=== PATIENT | female | born 1945 | race Caucasian/White ===

== ENCOUNTER 2018-11-03 20:39 | Inpatient (IN) | payer MEDICARE, OTHER | END 2018-11-06 16:30 | disposition home or self-care (01) | LOC: ER 20:39 → ED HOLD 11-04 03:39 → ORTHO 4S 11-04 05:50 | DX: J44.0 Chronic obstructive pulmonary disease with (acute) lower respiratory infection (principal); I25.10 Atherosclerotic heart disease of native coronary artery without angina pectoris; I50.9 Heart failure, unspecified ==

== ENCOUNTER 2019-06-23 18:15 | Emergency (ER) | payer MEDICARE, OTHER ==
[~2019-06-23] VITALS: Ht 160 cm; Wt 61.8 kg
[~2019-06-23 18:15] MED LIST: ALBU2.5V7 NEB; AMLO-359 PO; DIPH-423 PO; DOXY-224 PO; FERR325T35 PO; LACT1CAP26 PO; LEVO200T PO; LOPE-144 PO; PRED10TA PO; [UNRECOGNIZED DRUG - CODE] PO
[2019-06-23] MEDS ORDERED: ondansetron 4mg rapidly disintigrating tab PO ONE (19:25)
[2019-06-23] MEDS ORDERED: pantoprazole 40 MG vial IV ONE (19:35)
[2019-06-23 19:46] LABS: CLARITY,URINE CLEAR (Clear); COLOR,URINE YELLOW (Yellow); GLUCOSE, URINE NEGATIVE (Neg); KETONES,URINE NEGATIVE (Neg); LEUKOCYTE ESTERASE ,URINE NEGATIVE (Neg); NITRITES, URINE NEGATIVE (Neg); OCCULT BLOOD,URINE NEGATIVE (Neg); PROTEIN,URINE NEGATIVE (Neg); UROBILINOGEN,URINE 0.2 E.U/dL (0.2-1.0)
[2019-06-23 19:48] LABS: UA COLLECTION TYPE CLN CATCH MIDSTREAM
--- NOTE | 2019-06-23 20:07 | NUR ---
PT HOB ELEVATED 90 DEGRESS O2 SATS 91-92 % ROOM AIR . PT STATES SHE GOES TO BED ABOUT [id number] AND NEEDS HER O2 SHE USES 2 LITERS AT HOME AT BEDTIME. PLACE PT ON 2 L NC TO MAINTAIN SATS > 95 % PT RESTING COMFORTABLY WITH HEAD OF BED NOW DOWN 30 DEGREES UNLABORED.
[2019-06-23 20:08] LABS: BASOPHILS % (AUTO) 1.1 % (0-1); EOSINOPHILS # (AUTO) 0.1 X10'3 (0-0.9); EOSINOPHILS % (AUTO) 2.7 % (0-6); HEMATOCRIT 40.8 % (35.0-45.0); HEMOGLOBIN 13.6 g/dl (12.0-16.0); LYMPHOCYTES % (AUTO) 23.9 % (21-51); MEAN CORPUSCULAR HEMOGLOBIN 31.1 PG (27.0-31.0); MEAN CORPUSCULAR HGB CONC 33.4 g/dL (33.0-36.5); MEAN CORPUSCULAR VOLUME 93.1 FL (78-98); MEAN PLATELET VOLUME 7.9 FL (7.4-10.4); MONOCYTES # (AUTO) 0.4 X10'3 (0-0.9); MONOCYTES % (AUTO) 8.6 % (2-12); NEUTROPHILS # (AUTO) 2.8 X10'3 (1.8-7.7); NEUTROPHILS % (AUTO) 63.7 % (42-75); PLATELET COUNT 111 X10'3 (140-440); RED BLOOD COUNT 4.38 X10'6 (4.20-5.60); RED CELL DISTRIBUTION WIDTH 14.6 % (11.5-14.5); WHITE BLOOD COUNT 4.4 X10'3 (4.5-11.0)
[2019-06-23 20:11] LABS: ALANINE AMINOTRANSFERASE 34 U/L (12-78); ALBUMIN 4.3 G/DL (3.4-5.0); ALBUMIN/GLOBULIN RATIO 0.9 (1.1-1.5); ALKALINE PHOSPHATASE 63 IU/L (46-116); ANION GAP 8 (8-16); ASPARTATE AMINO TRANSFERASE 42 U/L (10-37); BILIRUBIN,TOTAL 0.4 MG/DL (0.1-1.0); BLOOD UREA NITROGEN 17 MG/DL (7-18); BUN/CREATININE RATIO 14.8 (6.6-38.0); CALCIUM 9.8 MG/DL (8.5-10.1); CHLORIDE 101 MMOL/L (99-107); CREATININE 1.15 MG/DL (0.40-0.90); GLUCOSE 112 MG/DL (70-104); POTASSIUM 3.8 MMOL/L (3.5-5.1); SODIUM 142 MMOL/L (135-145); TOTAL CARBON DIOXIDE 33.1 MMOL/L (24-32); TOTAL PROTEIN 8.9 G/DL (6.4-8.2); eGFR 46 ML/MIN
[2019-06-23 20:17] LABS: LIPASE 58 U/L (73-393)
--- NOTE | 2019-06-23 20:21 | NUR ---
PT TO CT
--- NOTE | 2019-06-23 20:46 | NUR ---
PT BACK FROM CT O2 SATS 89-90 % ROOM AT REST . REPLACED O2 PER N/C AT 2 LITERS WITH AN INCREASE IN SATURATION TO 93% IMMEDIATELY. PT UNLABORED, RESTING PEACFULLY. WILL CONINUE TO REASSESS
[2019-06-23 20:49] VITALS: BP 133/67
--- NOTE | 2019-06-23 20:53 | NUR ---
PT DAUGHTER PHONE STATED SHE WOULD BE AT THE HOSPITAL SHORTLY TARYN
--- NOTE | 2019-06-23 21:16 | NUR ---
CALLED DAUGHTER, SHE SAID SHE'D APPEALS ASSISTANT HER MOTHER IN 15 MIN.
[2019-06-25] MEDS ORDERED: AMLO-352 PO (15:47)
[2019-06-25] MEDS ORDERED: GLIM2TAB3 PO (15:47)
[2019-06-25] MEDS ORDERED: COLE1TAB4 PO (15:47)
[2019-06-25] MEDS ORDERED: DILT-35 PO (15:47)
[2019-06-25] MEDS ORDERED: CELE-85 PO (15:47)
[2019-06-25] MEDS ORDERED: GABA-532 PO (15:47)
[2019-06-25] MEDS ORDERED: IPRA30SP NS (15:50)
[2019-06-26] MEDS ORDERED: LEVO200T42 PO (11:47)
[2019-06-27] MEDS ORDERED: ATOR20TA66 PO (11:12)
== END 2019-06-23 21:22 | disposition home or self-care (01) ==
LOC: ER 18:16
DX: K46.9 Unspecified abdominal hernia without obstruction or gangrene (principal); G47.33 Obstructive sleep apnea (adult) (pediatric); R10.84 Generalized abdominal pain; I25.10 Atherosclerotic heart disease of native coronary artery without angina pectoris; I11.0 Hypertensive heart disease with heart failure; I50.9 Heart failure, unspecified; E78.00 Pure hypercholesterolemia, unspecified; I25.2 Old myocardial infarction; J44.9 Chronic obstructive pulmonary disease, unspecified; K21.9 Gastro-esophageal reflux disease without esophagitis; G89.29 Other chronic pain; Z98.890 Other specified postprocedural states; Z95.1 Presence of aortocoronary bypass graft; Z90.710 Acquired absence of both cervix and uterus; Z88.0 Allergy status to penicillin; Z88.1 Allergy status to other antibiotic agents; Z88.6 Allergy status to analgesic agent; Z79.899 Other long term (current) drug therapy
CPT/HCPCS: 36415; 71045; 74176; 80053; 81003; 83690; 83880; 84484; 85025; 93005; 96374; 99284; C9113

== ENCOUNTER 2020-03-10 18:48 | Inpatient (IN) | payer MEDICARE, OTHER ==
[~2020-03-10] VITALS: Ht 160 cm; Wt 70.5 kg
[~2020-03-10 18:48] MED LIST changes: -ALBU2.5V7 NEB; +AMLO-352 PO; -AMLO-359 PO; +ATOR20TA66 PO; +CELE-85 PO; +COLE1TAB4 PO; +DILT-35 PO; -DOXY-224 PO; +GABA-532 PO; +GLIM2TAB6 PO; +IPRA30SP NS; -LACT1CAP26 PO; -LEVO200T PO; +LEVO200T42 PO; -LOPE-144 PO; -PRED10TA PO
[2020-03-10] MEDS ORDERED: aspirin 81mg tab.chew PO ONE ×2 (18:55→19:15)
[2020-03-10] MEDS ORDERED: furosemide 10 MG/1 ML 10ml inj IV ONE (18:55)
--- NOTE | 2020-03-10 19:00 | NUR ---
LAB AT BEDSIDE AND EKG BEING COMPLETED
--- NOTE | 2020-03-10 19:03 | NUR ---
PT MEDICATED WITH 324MG OF ASPRIN AND 60 MG OF LASIX IV
--- NOTE | 2020-03-10 19:05 | NUR ---
XRAY AT BEDSIDE
--- NOTE | 2020-03-10 19:08 | NUR ---
RESP AT BEDSIDE PULLLING ABGS
[2020-03-10 19:17] LABS: BASOPHILS % (AUTO) 0.8 % (0-1); EOSINOPHILS # (AUTO) 0.1 X10'3 (0-0.9); EOSINOPHILS % (AUTO) 1.5 % (0-6); HEMATOCRIT 40.4 % (35.0-45.0); HEMOGLOBIN 13.1 g/dl (12.0-16.0); LYMPHOCYTES # (AUTO) 0.9 X10'3 (1.1-4.8); LYMPHOCYTES % (AUTO) 22.1 % (21-51); MEAN CORPUSCULAR HEMOGLOBIN 29.1 PG (27.0-31.0); MEAN CORPUSCULAR HGB CONC 32.4 g/dL (33.0-36.5); MEAN CORPUSCULAR VOLUME 89.9 FL (78-98); MEAN PLATELET VOLUME 8.1 FL (7.4-10.4); MONOCYTES # (AUTO) 0.3 X10'3 (0-0.9); MONOCYTES % (AUTO) 8.1 % (2-12); NEUTROPHILS # (AUTO) 2.7 X10'3 (1.8-7.7); NEUTROPHILS % (AUTO) 67.5 % (42-75); PLATELET COUNT 102 X10'3 (140-440); RED BLOOD COUNT 4.49 X10'6 (4.20-5.60); RED CELL DISTRIBUTION WIDTH 14.8 % (11.5-14.5); WHITE BLOOD COUNT 3.9 X10'3 (4.5-11.0)
[2020-03-10 19:20] LABS: ABG BASE EXCESS -3.2 mmol/L (-2.0-2.0); ABG HCO3 21.8 mmol/L (22.0-26.0); ABG OXYGEN SATURATION 93.1 % (94-97); ABG PCO2 (T) 39.3 mmHg (32.0-45.0); ALLEN'S TEST POSITIVE; FCOHb 1.1 % (0.0-3.9); FLOW 6 L/min; FMetHb 0.1 % (0.0-1.5); PATIENT TEMPERATURE 37.1; TOTAL HEMOGLOBIN 13.5 G/dl (12.0-16.0)
--- NOTE | 2020-03-10 19:20 | NUR ---
RESP AT BEDSIDE SETTING UP AND YOBANI BI PAP
[2020-03-10 19:32] LABS: ALANINE AMINOTRANSFERASE 34 U/L (12-78); ALBUMIN 3.9 G/DL (3.4-5.0); ALKALINE PHOSPHATASE 69 IU/L (46-116); ANION GAP 13 (8-16); ASPARTATE AMINO TRANSFERASE 35 U/L (10-37); BILIRUBIN,TOTAL 0.6 MG/DL (0.1-1.0); BLOOD UREA NITROGEN 13 MG/DL (7-18); BUN/CREATININE RATIO 13.1 (6.6-38.0); CALCIUM 9.1 MG/DL (8.5-10.1); CHLORIDE 107 MMOL/L (99-107); CREATININE 0.99 MG/DL (0.40-0.90); GLUCOSE 162 MG/DL (70-104); POTASSIUM 3.8 MMOL/L (3.5-5.1); SODIUM 143 MMOL/L (135-145); TOTAL CARBON DIOXIDE 22.8 MMOL/L (24-32); TOTAL PROTEIN 7.8 G/DL (6.4-8.2); eGFR 55 ML/MIN
[2020-03-10] MEDS ORDERED: enoxaparin 100mg/ml syringe SUBCUT ONE (19:40)
--- NOTE | 2020-03-10 20:01 | NUR ---
PT TO BE ADMITTED, AWAITING HOSPITALIST.
[2020-03-10] MEDS ORDERED: acetaminophen 325mg tablet PO PRN (20:10)
[2020-03-10] MEDS ORDERED: ondansetron/PF 4mg/2ml inj IV PRN (20:10)
[2020-03-10] MEDS ORDERED: magnesium 2GM in 50ml NS 50 ML IV PRN (20:10)
[2020-03-10] MEDS ORDERED: albuterol 2.5 MG/3 ML nebule NEB PRN ×2 (20:10)
[2020-03-10] MEDS ORDERED: magnesium 4gm in 100ml NS 100 ML IV PRN (20:10)
[2020-03-10] MEDS ORDERED: magnesium Cl slow-release 64mg tablet PO PRN (20:10)
[2020-03-10] MEDS ORDERED: potassium Cl 20 mEq SR tablet PO PRN (20:10)
[2020-03-10] MEDS ORDERED: potassium CL 10mEq/100ml bag 100 ML IV PRN ×2 (20:10)
--- NOTE | 2020-03-10 20:16 | NUR ---
PT ASSISTED TO BSC. SHE HAS STEADY GAIT AND NEEDED MINIMAL ASSISTANCE. STATES EH IS VERY STEADY ON HER FEET AND DOES NOT NEED AN ASSISTIVE DEVISE FOR AMBULATION. REMAINS ON BIPAP AND REPORTS MUCH IMPROVEMENT IN HER SYMPTOMS SINCE ARRIVAL. CHANGED INTO GOWN AND NOW CALLING HER CHILDREN TO UPDATE OF STATUS OF ADMISSION.
--- NOTE | 2020-03-10 20:32 | NUR ---
PT INSISTANT OF CALLING HER FAMILY TO UPDATE THEM AND REQUESTED TO BE OFF BIPAP FOR THIS.
[2020-03-10] MEDS ORDERED: temazepam 15mg capsule PO PRN (21:00)
--- NOTE | 2020-03-10 21:52 | NUR ---
REPORT GIVEN TO CESAR, ACC UNIT. IPA 316.
[2020-03-10 22:00] VITALS: BP 156/73
--- NOTE | 2020-03-10 22:44 | NUR ---
PAGER ID: [phone] MESSAGE: Rm 316 Emilia Hodge. DX SOB. 3 Hour troponin is 3.02 up from 0.12. Keven ZHANG Ext [phone]
[2020-03-11 01:38] LABS: BASOPHILS % (AUTO) 0.5 % (0-1); EOSINOPHILS % (AUTO) 0.7 % (0-6); HEMATOCRIT 34.7 % (35.0-45.0); HEMOGLOBIN 11.5 g/dl (12.0-16.0); LYMPHOCYTES # (AUTO) 0.8 X10'3 (1.1-4.8); LYMPHOCYTES % (AUTO) 21.2 % (21-51); MEAN CORPUSCULAR HEMOGLOBIN 29.8 PG (27.0-31.0); MEAN CORPUSCULAR HGB CONC 33.2 g/dL (33.0-36.5); MEAN CORPUSCULAR VOLUME 89.6 FL (78-98); MEAN PLATELET VOLUME 8.2 FL (7.4-10.4); MONOCYTES # (AUTO) 0.4 X10'3 (0-0.9); MONOCYTES % (AUTO) 10.2 % (2-12); NEUTROPHILS # (AUTO) 2.5 X10'3 (1.8-7.7); NEUTROPHILS % (AUTO) 67.4 % (42-75); PLATELET COUNT 99 X10'3 (140-440); RED BLOOD COUNT 3.87 X10'6 (4.20-5.60); RED CELL DISTRIBUTION WIDTH 14.4 % (11.5-14.5); WHITE BLOOD COUNT 3.8 X10'3 (4.5-11.0)
[2020-03-11 01:48] LABS: ALBUMIN 3.6 G/DL (3.4-5.0); ANION GAP 9 (8-16); BLOOD UREA NITROGEN 13 MG/DL (7-18); BUN/CREATININE RATIO 14.3 (6.6-38.0); CALCIUM 8.2 MG/DL (8.5-10.1); CHLORIDE 108 MMOL/L (99-107); CHOL/HDL RATIO 4.1 (0.00-4.99); CHOLESTEROL 149 MG/DL (0-200); CREATININE 0.91 MG/DL (0.40-0.90); GLUCOSE 116 MG/DL (70-104); HDL CHOLESTEROL 36 MG/DL (35-60); LDL CHOLESTEROL 86 MG/DL (50-100); MAGNESIUM 1.6 MG/DL (1.5-2.4); POTASSIUM 3.4 MMOL/L (3.5-5.1); SODIUM 144 MMOL/L (135-145); TOTAL CARBON DIOXIDE 27.4 MMOL/L (24-32); TRIGLYCERIDES 133 MG/DL (20-135); eGFR 60 ML/MIN
--- NOTE | 2020-03-11 01:54 | NUR ---
promotional table spacer PAGER ID: [phone] MESSAGE: Ayesha Emilia rm 316. DX SOB. 6 hour troponin 4.8 up from 3.02. Patient does not complain of any chest pain, just pain when she breathes in. Could I also get an order for some pain medication for her back pain? Keven ZHANG EXT [id number]
[2020-03-11 02:00] VITALS: BP 145/61
[2020-03-11] MEDS ORDERED: HYDROcodone/acetaminophen 5mg/325mg tablet PO ONE (02:05)
--- NOTE | 2020-03-11 04:50 | NUR ---
PAGER ID: [phone] MESSAGE: Emilia Hodge, RM 316. DX SOB. had a 8 beat run of Vtach. K and Mag this am are 3.4 and 1.6 respectfully. Will replace per protocol. Keven ZHANG Ext [phone].
[2020-03-11] MEDS: potassium Cl 20 mEq SR tablet PO PRN ×3 (04:59→16:51)
--- NOTE | 2020-03-11 05:18 | NUR ---
PAGER ID: [phone] MESSAGE: Emilia Hodge. Rm 316. DX SOB. Med Reconciliation, is ready for your approval. Keven ZHANG EXT [phone]
[2020-03-11 06:00] VITALS: BP 115/47
--- NOTE | 2020-03-11 06:32 | NUR ---
Problems reprioritized. Patient report given, questions answered & plan of care reviewed with Pat RN.
--- NOTE | 2020-03-11 06:55 | NUR ---
DR. Estephanie CHOI AT BEDSIDE. ADDRESSED MED REC; NEW ORDERS RECEIVED: COREG 6.25 MG PO BID, LISINOPRIL 20MG PO QHS, LASIX 40MG IV BID.
[2020-03-11] MEDS ORDERED: DILT-35 PO (07:22)
[2020-03-11] MEDS ORDERED: AMLO-352 PO (07:22)
[2020-03-11] MEDS ORDERED: DIGO125T PO (07:22)
[2020-03-11] MEDS ORDERED: enoxaparin 40mg/0.4ml syringe SUBCUT SCH (08:00)
[2020-03-11] MEDS ORDERED: [UNRECOGNIZED DRUG - OTHER] PO SCH (08:00)
[2020-03-11] MEDS ORDERED: VALSARTAN PO SCH (08:00)
[2020-03-11] MEDS: K and/or MAG REPLACEMENT MC SCH ×2 (08:00→20:00)
[2020-03-11] MEDS ORDERED: HCTHIAZID PO SCH (08:00)
[2020-03-11] MEDS ORDERED: enoxaparin 30mg/0.3ml syringe SUBCUT SCH (08:00)
[2020-03-11] MEDS ORDERED: COLESTIPOL 1 GM PO SCH (08:00)
[2020-03-11] MEDS ORDERED: AMLODIPINE PO SCH (08:00)
--- NOTE | 2020-03-11 08:37 | NUR ---
Dr. talbert paged: PAGER ID: [phone] MESSAGE: 316: Ivethichbauer - 12 HR trop 4.29, down from 4.8. will order x1 trop to confirm downtrend, then d/c trops. nurse bonnie/brody [phone]
--- NOTE | 2020-03-11 08:38 | NUR ---
Dr. Phillips called back. new order received: no need to order another troponin. will continue to monitor
[2020-03-11] MEDS: methylPREDNISolone sod succ/PF 40mg inj. IV SCH ×2 (09:10→19:58)
[2020-03-11] MEDS: enoxaparin 40mg/0.4ml syringe SUBCUT SCH ×2 (09:12→19:57)
[2020-03-11] MEDS: enoxaparin 30mg/0.3ml syringe SUBCUT SCH ×2 (09:13→19:57)
[2020-03-11] MEDS: furosemide 40mg/4ml inj IV SCH ×2 (09:19→19:57)
[2020-03-11] MEDS: carvedilol 6.25mg tablet PO SCH ×2 (09:21→19:55)
[2020-03-11] MEDS: celeCOXIB 100mg capsule PO SCH (09:21)
[2020-03-11] MEDS: gabapentin 300mg capsule PO SCH ×3 (09:21→19:54)
[2020-03-11] MEDS: docusate sod 100mg capsule PO SCH ×2 (09:21→19:54)
[2020-03-11] MEDS: atorvastatin 20mg tablet PO SCH (09:22)
[2020-03-11] MEDS: levoFLOXACIN-Levaquin 500mg/D5 100 ML IV SCH (09:45)
[2020-03-11 11:00] VITALS: BP 161/70
--- NOTE | 2020-03-11 14:58 | NUR ---
Malnutrition consult: "40 pound loss since June". Pt admit w/ COPD exacerbation, CHF, NSTEMI, malignant HTN, and hypothyroidism. Pt has normal strength, so significant edema, skin intact. PO meals pending documentation RN unsure at this time; RN reports pt appears well-nourished at this time. Current wt 70.5kg bed scale w/ all prior admits no accurate wt method or hx. Some wt loss possible given age but no significant loss hx at this time does not meet minimum malnutrition criteria. Will continue to monitor. Addendum: 03/11/20 at [address] Amended: Links added.
[2020-03-11 15:00] VITALS: BP 143/66
[2020-03-11] MEDS ORDERED: LEVO200T8 PO (15:10)
[2020-03-11] MEDS ORDERED: ipratropium/albuterol 3ml nebule NEB PRN (17:30)
[2020-03-11 18:00] VITALS: BP 150/68
--- NOTE | 2020-03-11 18:32 | NUR ---
Patient in room MED 316. I have received report from Linda RN and had the opportunity to ask questions and assume patient care.
--- NOTE | 2020-03-11 19:24 | NUR ---
Patient wore bipap last night. Today she has asked her family member to look at the settings of her home cpap. She told me that the home machine titrates from 9-12. I changed the mode from S/T 10/5 to CPAP of 11, 30%.
[2020-03-11] MEDS: lisinopril 20mg tablet PO SCH (20:19)
[2020-03-11] MEDS: diphenhydrAMINE 25mg capsule PO SCH (20:22)
[2020-03-11 22:00] VITALS: BP 130/53
[2020-03-12] MEDS: gabapentin 300mg capsule PO SCH ×4 (01:51→19:50)
[2020-03-12 02:00] VITALS: BP 107/47
[2020-03-12 05:36] LABS: BASOPHILS % (AUTO) 0.2 % (0-1); EOSINOPHILS % (AUTO) 0.1 % (0-6); HEMATOCRIT 33.8 % (35.0-45.0); HEMOGLOBIN 11.1 g/dl (12.0-16.0); LYMPHOCYTES # (AUTO) 0.7 X10'3 (1.1-4.8); LYMPHOCYTES % (AUTO) 16.3 % (21-51); MEAN CORPUSCULAR HEMOGLOBIN 29.4 PG (27.0-31.0); MEAN CORPUSCULAR HGB CONC 32.8 g/dL (33.0-36.5); MEAN CORPUSCULAR VOLUME 89.6 FL (78-98); MEAN PLATELET VOLUME 8.3 FL (7.4-10.4); MONOCYTES # (AUTO) 0.3 X10'3 (0-0.9); MONOCYTES % (AUTO) 7.7 % (2-12); NEUTROPHILS # (AUTO) 3.1 X10'3 (1.8-7.7); NEUTROPHILS % (AUTO) 75.7 % (42-75); PLATELET COUNT 96 X10'3 (140-440); RED BLOOD COUNT 3.77 X10'6 (4.20-5.60); RED CELL DISTRIBUTION WIDTH 14.2 % (11.5-14.5); WHITE BLOOD COUNT 4.1 X10'3 (4.5-11.0)
[2020-03-12 05:53] LABS: ALBUMIN 3.4 G/DL (3.4-5.0); ANION GAP 7 (8-16); BLOOD UREA NITROGEN 25 MG/DL (7-18); BUN/CREATININE RATIO 22.7 (6.6-38.0); CALCIUM 8.5 MG/DL (8.5-10.1); CHLORIDE 106 MMOL/L (99-107); GLUCOSE 153 MG/DL (70-104); MAGNESIUM 1.9 MG/DL (1.5-2.4); POTASSIUM 4.2 MMOL/L (3.5-5.1); SODIUM 141 MMOL/L (135-145); TOTAL CARBON DIOXIDE 27.9 MMOL/L (24-32); eGFR 48 ML/MIN
[2020-03-12 06:00] VITALS: BP 106/46
--- NOTE | 2020-03-12 06:27 | NUR ---
Problems reprioritized. Patient report given, questions answered & plan of care reviewed with Hoa ZHANG.
--- NOTE | 2020-03-12 06:28 | NUR ---
Patient in room MED 316. I have received report from LEATHA Johnson and had the opportunity to ask questions and assume patient care.
[2020-03-12] MEDS: K and/or MAG REPLACEMENT MC SCH ×2 (08:00→20:00)
[2020-03-12] MEDS: docusate sod 100mg capsule PO SCH ×2 (08:00→19:50)
[2020-03-12] MEDS: celeCOXIB 100mg capsule PO SCH (09:02)
[2020-03-12] MEDS: atorvastatin 20mg tablet PO SCH (09:02)
[2020-03-12] MEDS: levoTHYROXINE 100mcg tablet PO SCH (09:02)
[2020-03-12] MEDS: methylPREDNISolone sod succ/PF 40mg inj. IV SCH ×2 (09:03→19:51)
[2020-03-12] MEDS: enoxaparin 40mg/0.4ml syringe SUBCUT SCH ×2 (09:04→19:49)
[2020-03-12] MEDS: enoxaparin 30mg/0.3ml syringe SUBCUT SCH ×2 (09:04→19:49)
[2020-03-12] MEDS: furosemide 40mg/4ml inj IV SCH (09:05)
[2020-03-12] MEDS: levoFLOXACIN-Levaquin 500mg/D5 100 ML IV SCH (09:05)
[2020-03-12 10:00] VITALS: BP 103/43
[2020-03-12 14:00] VITALS: BP 96/50
[2020-03-12 18:00] VITALS: BP 130/51
--- NOTE | 2020-03-12 18:23 | NUR ---
Patient in room MED 316. I have received report from Hoa ZHANG and had the opportunity to ask questions and assume patient care.
--- NOTE | 2020-03-12 18:25 | NUR ---
Problems reprioritized. Patient report given, questions answered & plan of care reviewed with LEATHA Johnson.
[2020-03-12] MEDS: lisinopril 20mg tablet PO SCH (19:50)
[2020-03-12] MEDS: furosemide 20 MG/2 ML vial IV SCH (19:51)
[2020-03-12] MEDS ORDERED: carVEDilol 3.125mg tablet PO SCH (20:00)
[2020-03-12] MEDS: diphenhydrAMINE 25mg capsule PO SCH (20:00)
[2020-03-12 22:00] VITALS: BP 117/54
[2020-03-13] MEDS: gabapentin 300mg capsule PO SCH ×3 (01:54→14:00)
[2020-03-13 02:00] VITALS: BP 101/42
[2020-03-13 06:00] VITALS: BP 102/46
[2020-03-13 06:10] LABS: ALBUMIN 3.3 G/DL (3.4-5.0); ANION GAP 5 (8-16); BLOOD UREA NITROGEN 36 MG/DL (7-18); BUN/CREATININE RATIO 27.7 (6.6-38.0); CALCIUM 8.4 MG/DL (8.5-10.1); CHLORIDE 102 MMOL/L (99-107); GLUCOSE 160 MG/DL (70-104); POTASSIUM 4.6 MMOL/L (3.5-5.1); SODIUM 136 MMOL/L (135-145); TOTAL CARBON DIOXIDE 28.7 MMOL/L (24-32); eGFR 40 ML/MIN
[2020-03-13 06:13] LABS: BASOPHILS % (AUTO) 0.2 % (0-1); EOSINOPHILS % (AUTO) 0 % (0-6); HEMATOCRIT 31.4 % (35.0-45.0); HEMOGLOBIN 10.5 g/dl (12.0-16.0); LYMPHOCYTES # (AUTO) 0.8 X10'3 (1.1-4.8); LYMPHOCYTES % (AUTO) 15.4 % (21-51); MEAN CORPUSCULAR HEMOGLOBIN 29.7 PG (27.0-31.0); MEAN CORPUSCULAR HGB CONC 33.3 g/dL (33.0-36.5); MEAN CORPUSCULAR VOLUME 89.1 FL (78-98); MEAN PLATELET VOLUME 8.6 FL (7.4-10.4); MONOCYTES # (AUTO) 0.3 X10'3 (0-0.9); MONOCYTES % (AUTO) 6.2 % (2-12); NEUTROPHILS # (AUTO) 4.2 X10'3 (1.8-7.7); NEUTROPHILS % (AUTO) 78.2 % (42-75); PLATELET COUNT 98 X10'3 (140-440); RED BLOOD COUNT 3.53 X10'6 (4.20-5.60); RED CELL DISTRIBUTION WIDTH 14.3 % (11.5-14.5); WHITE BLOOD COUNT 5.3 X10'3 (4.5-11.0)
--- NOTE | 2020-03-13 06:30 | NUR ---
Patient in room MED 316. I have received report from Elizabeth ZHANG and had the opportunity to ask questions and assume patient care.
--- NOTE | 2020-03-13 06:31 | NUR ---
Problems reprioritized. Patient report given, questions answered & plan of care reviewed with Zuleyka ZHANG.
[2020-03-13] MEDS: levoTHYROXINE 100mcg tablet PO SCH (08:25)
[2020-03-13] MEDS: celeCOXIB 100mg capsule PO SCH (08:26)
[2020-03-13] MEDS: levoFLOXACIN-Levaquin 500mg/D5 100 ML IV SCH (08:26)
[2020-03-13] MEDS: furosemide 20 MG/2 ML vial IV SCH (08:26)
[2020-03-13] MEDS: methylPREDNISolone sod succ/PF 40mg inj. IV SCH (08:26)
[2020-03-13] MEDS: docusate sod 100mg capsule PO SCH (08:26)
[2020-03-13] MEDS: atorvastatin 20mg tablet PO SCH (08:26)
[2020-03-13] MEDS: K and/or MAG REPLACEMENT MC SCH (08:28)
[2020-03-13 10:00] VITALS: BP 118/44
--- NOTE | 2020-03-13 11:43 | NUR ---
dr. francois paged: PAGER ID: [phone] MESSAGE: [phone]: JACQUES - CALL [phone], give dental receptionist your cell phone # and she will page Dr. Estephanie Tapia to call you back. nurse Rama 0004
[2020-03-13] MEDS ORDERED: LISI-600 PO (14:59)
[2020-03-13] MEDS ORDERED: LEVO125T8 PO (15:52)
--- NOTE | 2020-03-13 16:15 | NUR ---
Pt has remained stable. VSS Discharge orders given by . IV discontinued and no s/s of complications noted. All belongings accounted for. Pt stated understanding to all discharge instructions. She was taken via wheelchair to private vehicle and left with son.
[2020-03-13] MEDS ORDERED: heparin, porcine 5000 units/ml vial SQ SCH (20:00)
[2020-03-13] MEDS ORDERED: carVEDilol 3.125mg tablet PO SCH (20:00)
[2020-03-14] MEDS ORDERED: levoFLOXACIN-Levaquin 250mg/D5 100 ML IV SCH (08:00)
[2020-03-14] MEDS ORDERED: levoTHYROXINE 100mcg tablet PO SCH (08:00)
--- NOTE | 2020-03-16 11:18 | NUR ---
Case Management DC follow up: spoke to pt via telephone. s/p:difficult breathing, NSTEMI. Reports:"doing okay, still a little weak" Denies: acute/continuous CP, emergent SOB, resp distress, N/V, [place], blurry vision, vertigo, syncope episodes,emergent general pain, abd tenderness/distension, bladder pain, dysuria, polyuria, hematuria, retention, constipation, diarrhea, fever, unexplained bleeding, bruising. Verbalizes understanding of s/s that warrant 9-11/ER visit for further evaluation. Verbalizes understanding of new RxL Lisinopril, denied noticing the Levothyroxine lower dose change. Understands why prescribed, resumes current Rx, taking as ordered, no ase r/t polypharmacy. Acknowledges need to schedule/keep follow up appts w/ PCP/Jim to go over medications, & to see if PCP wants pt to resume Coreg. Leaf Binner/Richard. Pt agrees to contact and schedule appts today 03/16/20. Verbalizes compliance w/DC aftercare. Needs met, questions answered at DC, no further questions or concerns at this time.
== END 2020-03-13 16:15 | disposition home or self-care (01) | DRG 280 ==
LOC: ER 18:48 → ED HOLD 20:09 → MED 3N 22:41 → CMPBEDREQ 03-11 02:31
PROVIDERS: ADMIT Internal Medicine; ATTEND Internal Medicine
PROC: 5A09357 Assistance with Respiratory Ventilation, Less than 24 Consecutive Hours, Continuous Positive Airway Pressure (ICD-10-PCS; principal; 2020-03-11)
PROC: 5A09357 Assistance with Respiratory Ventilation, Less than 24 Consecutive Hours, Continuous Positive Airway Pressure (ICD-10-PCS; 2020-03-12)
PROC: 5A09357 Assistance with Respiratory Ventilation, Less than 24 Consecutive Hours, Continuous Positive Airway Pressure (ICD-10-PCS; 2020-03-13)
DX: I11.0 Hypertensive heart disease with heart failure (principal); I21.A1 Myocardial infarction type 2; J96.90 Respiratory failure, unspecified, unspecified whether with hypoxia or hypercapnia; J44.1 Chronic obstructive pulmonary disease with (acute) exacerbation; I47.2 Ventricular tachycardia; I50.33 Acute on chronic diastolic (congestive) heart failure; I25.2 Old myocardial infarction; I25.10 Atherosclerotic heart disease of native coronary artery without angina pectoris; E78.00 Pure hypercholesterolemia, unspecified; Z95.1 Presence of aortocoronary bypass graft; Z90.710 Acquired absence of both cervix and uterus; Z87.891 Personal history of nicotine dependence; G47.30 Sleep apnea, unspecified; E78.5 Hyperlipidemia, unspecified; E11.9 Type 2 diabetes mellitus without complications; E03.9 Hypothyroidism, unspecified; K21.9 Gastro-esophageal reflux disease without esophagitis; M54.9 Dorsalgia, unspecified; I42.0 Dilated cardiomyopathy; Z88.8 Allergy status to other drugs, medicaments and biological substances; Z88.5 Allergy status to narcotic agent; Z88.0 Allergy status to penicillin; Z88.7 Allergy status to serum and vaccine
CPT/HCPCS: 36415; 36600; 71045; 80048; 80053; 80061; 82803; 83036; 83735; 83880; 84443; 84484; 85018; 85025; 87070; 87081; 93005; 93306; 94640; 94660; 94760; 96374; 99291; G0378; J1650; J1940; J1956; J2920

== ENCOUNTER 2022-04-13 12:55 | Inpatient (IN) | payer MEDICARE, OTHER ==
[~2022-04-13] VITALS: Ht 157.5 cm; Wt 63.6 kg
[~2022-04-13 12:55] MED LIST changes: -AMLO-352 PO; -ATOR20TA66 PO; +ATOR40TA72 PO; +CARV-50 PO; -CELE-85 PO; +CLOP75TA34 PO; +DIGO125T PO; -DILT-35 PO; -DIPH-423 PO; +FERR236T3 PO; -FERR325T35 PO; +FOLI1TAB27 PO; +FURO20TA4 PO; -GLIM2TAB6 PO; -IPRA30SP NS; +MULT-1085 PO; +OSC500T PO; +SPIR25TA5 PO; -[UNRECOGNIZED DRUG - CODE] PO
[2022-04-13] MEDS ORDERED: acetaminophen 325mg tablet PO ONE (16:20)
[2022-04-13 16:58] LABS: BASOPHILS % (AUTO) 0.4 % (0-1); EOSINOPHILS % (AUTO) 0.9 % (0-6); HEMATOCRIT 32.6 % (35.0-45.0); LYMPHOCYTES # (AUTO) 0.3 X10'3 (1.1-4.8); LYMPHOCYTES % (AUTO) 9.5 % (21-51); MEAN CORPUSCULAR HEMOGLOBIN 30.2 PG (27.0-31.0); MEAN CORPUSCULAR HGB CONC 33.7 g/dL (33.0-36.5); MEAN CORPUSCULAR VOLUME 89.8 FL (78-98); MEAN PLATELET VOLUME 7.7 FL (7.4-10.4); MONOCYTES # (AUTO) 0.3 X10'3 (0-0.9); MONOCYTES % (AUTO) 8.2 % (2-12); NEUTROPHILS # (AUTO) 2.9 X10'3 (1.8-7.7); PLATELET COUNT 56 X10'3 (140-440); RED BLOOD COUNT 3.64 X10'6 (4.20-5.60); RED CELL DISTRIBUTION WIDTH 15.4 % (11.5-14.5); WHITE BLOOD COUNT 3.6 X10'3 (4.5-11.0)
[2022-04-13 17:17] LABS: ALANINE AMINOTRANSFERASE 35 U/L (12-78); ALBUMIN/GLOBULIN RATIO 1.3 (1.1-1.5); ALKALINE PHOSPHATASE 69 IU/L (46-116); ANION GAP 11 (8-16); ASPARTATE AMINO TRANSFERASE 29 U/L (10-37); BILIRUBIN,TOTAL 0.6 MG/DL (0.1-1.0); BLOOD UREA NITROGEN 19 MG/DL (7-18); BUN/CREATININE RATIO 18.1 (6.6-38.0); CALCIUM 9.2 MG/DL (8.5-10.1); CHLORIDE 104 MMOL/L (99-107); CREATININE 1.05 MG/DL (0.40-0.90); GLUCOSE 157 MG/DL (70-104); POTASSIUM 3.9 MMOL/L (3.5-5.1); SODIUM 144 MMOL/L (135-145); TOTAL CARBON DIOXIDE 29.2 MMOL/L (24-32); TOTAL PROTEIN 7.2 G/DL (6.4-8.2); eGFR 51 ML/MIN
[2022-04-13 17:35] LABS: CLARITY,URINE CLEAR (Clear); COLOR,URINE YELLOW (Yellow); GLUCOSE, URINE NEGATIVE (Neg); KETONES,URINE NEGATIVE (Neg); LEUKOCYTE ESTERASE ,URINE NEGATIVE (Neg); NITRITES, URINE NEGATIVE (Neg); OCCULT BLOOD,URINE NEGATIVE (Neg); PH,URINE 5.5 (4.8-8.0); PROTEIN,URINE NEGATIVE (Neg); UROBILINOGEN,URINE 0.2 E.U/dL (0.2-1.0)
[2022-04-13 17:36] LABS: UA COLLECTION TYPE STRAIGHT CATH
[2022-04-13 18:01] LABS: APTT 26 SECONDS (22-32)
[2022-04-13] MEDS ORDERED: MESSAGE TO PHARMACY PO ONE (18:15)
[2022-04-13] MEDS ORDERED: morphine 2 MG/ML inj. syringe IV PRN (18:15)
[2022-04-13] MEDS ORDERED: POTASSIUM BICARB 20meq eff tab 20 MEQ TABLET.EFF PO PRN ×2 (18:15)
[2022-04-13] MEDS ORDERED: ondansetron/PF 4mg/2ml inj IV PRN (18:15)
[2022-04-13] MEDS ORDERED: acetaminophen 325mg tablet PO PRN ×2 (18:15)
[2022-04-13] MEDS ORDERED: magnesium 4gm in 100ml NS 100 ML IV PRN (18:15)
[2022-04-13] MEDS ORDERED: glucagon, human recombinant 1mg kit SUBCUT PRN (18:15)
[2022-04-13] MEDS ORDERED: mag hydrox/Alum hydrox/simeth 30ml oral suspension PO PRN (18:15)
[2022-04-13] MEDS ORDERED: dextrose 50%-water 50ml dispensing syringe IV PRN ×2 (18:15)
[2022-04-13] MEDS ORDERED: magnesium 2GM in 50ml NS 50 ML IV PRN (18:15)
[2022-04-13] MEDS ORDERED: potassium CL 10mEq/100ml bag 100 ML IV PRN (18:15)
[2022-04-13] MEDS ORDERED: insulin Lispro (HumaLOG) vial - multi-dose SQ SCH (18:15)
[2022-04-13] MEDS ORDERED: DEXTROSE 15 GM of carb/4 tabs (each vial/BOTTLE has 4 tablets) PO PRN ×2 (18:15)
[2022-04-13] MEDS ORDERED: PERFLUTREN PROTEIN-A MICROSPHR (Optison) 0.22 MG/ML 3ML VIAL IV ONE (18:45)
[2022-04-13] MEDS ORDERED: ipratropium/albuterol 3ml nebule NEB PRN (18:55)
[2022-04-13] MEDS ORDERED: albuterol 2.5 MG/3 ML nebule NEB PRN (18:55)
[2022-04-13] MEDS: COLESTIPOL HCL PO SCH (20:00)
[2022-04-13] MEDS: K and/or MAG REPLACEMENT MC SCH (20:00)
[2022-04-13] MEDS: docusate sod 100mg capsule PO SCH (20:00)
[2022-04-13] MEDS: ferrous gluconate 324mg tablet PO SCH (20:32)
[2022-04-13] MEDS: carvedilol 6.25mg tablet PO SCH (20:33)
[2022-04-13] MEDS: gabapentin 300mg capsule PO SCH (20:33)
[2022-04-13] MEDS: calcium carbonate 500mg tablet PO SCH (20:33)
[2022-04-13] MEDS: heparin, porcine 5000 units/ml vial SQ SCH (20:34)
[2022-04-13] MEDS: insulin glargine (Lantus) pen - multi-dose SQ SCH (20:39)
[2022-04-14] VITALS (18 sets, daily range): BP systolic 103–146; BP diastolic 44–73
[2022-04-14] MEDS: gabapentin 300mg capsule PO SCH ×4 (01:34→20:49)
[2022-04-14] MEDS: HYDROcodone/acetaminophen 5mg/325mg tablet PO PRN (01:35)
--- NOTE | 2022-04-14 06:34 | NUR ---
Assumed patient care at this time. Report received from Brett.
[2022-04-14 06:58] LABS: BASOPHILS % (AUTO) 0.9 % (0-1); EOSINOPHILS # (AUTO) 0.3 X10'3 (0-0.9); EOSINOPHILS % (AUTO) 7.8 % (0-6); HEMATOCRIT 30.6 % (35.0-45.0); HEMOGLOBIN 10.4 g/dl (12.0-16.0); LYMPHOCYTES # (AUTO) 0.5 X10'3 (1.1-4.8); LYMPHOCYTES % (AUTO) 14.3 % (21-51); MEAN CORPUSCULAR HEMOGLOBIN 30.4 PG (27.0-31.0); MEAN CORPUSCULAR HGB CONC 33.9 g/dL (33.0-36.5); MEAN CORPUSCULAR VOLUME 89.8 FL (78-98); MEAN PLATELET VOLUME 7.6 FL (7.4-10.4); MONOCYTES # (AUTO) 0.4 X10'3 (0-0.9); MONOCYTES % (AUTO) 10.6 % (2-12); NEUTROPHILS # (AUTO) 2.4 X10'3 (1.8-7.7); NEUTROPHILS % (AUTO) 66.4 % (42-75); PLATELET COUNT 56 X10'3 (140-440); RED BLOOD COUNT 3.41 X10'6 (4.20-5.60); RED CELL DISTRIBUTION WIDTH 15.4 % (11.5-14.5); WHITE BLOOD COUNT 3.7 X10'3 (4.5-11.0)
[2022-04-14 07:46] LABS: ALANINE AMINOTRANSFERASE 28 U/L (12-78); ALBUMIN 3.4 G/DL (3.4-5.0); ALKALINE PHOSPHATASE 51 IU/L (46-116); ANION GAP 9 (8-16); ASPARTATE AMINO TRANSFERASE 24 U/L (10-37); BILIRUBIN,TOTAL 0.8 MG/DL (0.1-1.0); BLOOD UREA NITROGEN 21 MG/DL (7-18); BUN/CREATININE RATIO 21.9 (6.6-38.0); CHLORIDE 106 MMOL/L (99-107); CREATININE 0.96 MG/DL (0.40-0.90); GLUCOSE 124 MG/DL (70-104); MAGNESIUM 1.9 MG/DL (1.5-2.4); POTASSIUM 4.3 MMOL/L (3.5-5.1); SODIUM 144 MMOL/L (135-145); TOTAL CARBON DIOXIDE 28.6 MMOL/L (24-32); TOTAL PROTEIN 6.7 G/DL (6.4-8.2); eGFR 56 ML/MIN
[2022-04-14] MEDS: K and/or MAG REPLACEMENT MC SCH ×2 (08:00→20:00)
[2022-04-14] MEDS: spironolactone 25 MG tablet PO SCH (08:00)
--- NOTE | 2022-04-14 08:00 | NUR ---
Missing home meds awaitng for pharmacy to bring.
[2022-04-14] MEDS: carvedilol 6.25mg tablet PO SCH ×2 (08:17→20:49)
[2022-04-14] MEDS: docusate sod 100mg capsule PO SCH ×2 (08:17→20:48)
[2022-04-14] MEDS: folic acid 1mg tablet PO SCH (08:18)
[2022-04-14] MEDS: digoxin 125mcg (0.125mg) tablet PO SCH (08:18)
[2022-04-14] MEDS: multivitamins, therapeutics tablet PO SCH (08:18)
[2022-04-14] MEDS: atorvastatin 20mg tablet PO SCH (08:18)
[2022-04-14] MEDS: levoTHYROXINE 100mcg tablet PO SCH (08:18)
[2022-04-14] MEDS: heparin, porcine 5000 units/ml vial SQ SCH ×2 (08:19→20:00)
--- NOTE | 2022-04-14 08:20 | NUR ---
Patient c/o severe pain. Patient will be medicated.
[2022-04-14] MEDS: morphine 2 MG/ML inj. syringe IV PRN ×2 (08:30→18:52)
--- NOTE | 2022-04-14 08:46 | NUR ---
Called nurse Ivy, she was not found in unit at this time. will call back
--- NOTE | 2022-04-14 09:22 | NUR ---
Patient in room ED 9. I have received report from ED RN and had the opportunity to ask questions and assume patient care.
--- NOTE | 2022-04-14 09:24 | NUR ---
Paged [facility] regarding Ibarra order in er bed 9.
--- NOTE | 2022-04-14 09:56 | NUR ---
Received pt from ED. Pt A&Ox4, rates pain as 2/10. Oriented pt to room and call light.
[2022-04-14] MEDS: ferrous gluconate 324mg tablet PO SCH ×2 (12:02→20:49)
[2022-04-14] MEDS: calcium carbonate 500mg tablet PO SCH ×2 (12:02→20:49)
[2022-04-14] MEDS: COLESTIPOL HCL PO SCH ×2 (12:02→20:00)
--- NOTE | 2022-04-14 13:27 | NUR ---
PAGER ID: [phone] MESSAGE: Can I place a conn in Emilia Hodge in 4012A? Left hip fx, sx today.
[2022-04-14] MEDS ORDERED: BUPIVAcaine/PF 2.5 mg/ml (0.25%) 30ml vial ONE (16:26)
[2022-04-14] MEDS ORDERED: LIDOcaine 1% 30ml preserv. free vial ONE (16:26)
[2022-04-14] MEDS ORDERED: fentaNYL/PF 50MCG/1 ML 2ML syringe ONE ×2 (16:26→17:03)
[2022-04-14] MEDS ORDERED: ketamine 50 mg/ml 10ml vial ONE (16:26)
[2022-04-14] MEDS ORDERED: midazolam 1 mg/ML 2ml injection ONE (16:26)
[2022-04-14] MEDS ORDERED: clindamycin-Cleocin 900mg/D5W 50 ML IV ONE (17:00)
[2022-04-14] MEDS ORDERED: ondansetron/PF 4mg/2ml inj ONE (17:15)
[2022-04-14] MEDS ORDERED: propofol inj 20 ML IV ONE (17:15)
[2022-04-14] MEDS ORDERED: BUPIVAcaine/PF 2.5 mg/ml (0.25%) 30ml vial IJ ONE (17:19)
[2022-04-14] MEDS ORDERED: LIDOcaine 1% 30ml preserv. free vial IJ ONE (17:19)
--- NOTE | 2022-04-14 17:19 | NUR ---
Received from OR via HOSPITAL BED, accompanied by Anesthesiologist and report given by BILLY Anesthesiologist. PT WAKING UP. VSS. PT PRESENTS WITH PIV 20G LEFT AC, HIP ISLAND DRESSING C/D/I, STRONG DISTAL PULSES NOTED, KENDRICK CATH DRAINING CLEAR YELLOW URINE. Addendum: 04/14/22 at 1739 by Kevin Wilson RN Amended: Links added.
[2022-04-14] MEDS ORDERED: fentaNYL/PF 50MCG/1 ML 2ML syringe IV PRN (17:30)
[2022-04-14] MEDS ORDERED: ondansetron/PF 4mg/2ml inj IV PRN (17:30)
[2022-04-14] MEDS ORDERED: morphine 2 MG/ML inj. syringe IV PRN (17:30)
[2022-04-14] MEDS ORDERED: ringers solution, lacted 1,000 ML IV SCH (17:30)
--- NOTE | 2022-04-14 18:10 | NUR ---
Patient in room ORTHO 4012. I have received report from LEATHA Tolentino and had the opportunity to ask questions and assume patient care.
--- NOTE | 2022-04-14 18:22 | NUR ---
Problems reprioritized. Patient report given, questions answered & plan of care reviewed with Viola ZHANG.
--- NOTE | 2022-04-14 18:34 | NUR ---
PATIENT HAS MET ALL CRITERIA FOR TRANSFER TO ORTHO FLOOR. VSS. DRESSINGS INTACT. BED LOW, CALL LIGHT PRESENT AND 2 RAILS UP. RN PRESENT TO ACCEPT CARE OF PATIENT AND REPORT HAS BEEN CALLED. ALL QUESTIONS ANSWERED TO ACCEPTING RN. Addendum: 04/14/22 at 1842 by Kevin Wilson RN Amended: Links added.
--- NOTE | 2022-04-14 19:00 | NUR ---
Patient in room ORTHO 4012. I have received report from LEATHA Claros and had the opportunity to ask questions and assume patient care.
[2022-04-14] MEDS: insulin glargine (Lantus) pen - multi-dose SQ SCH (21:00)
--- NOTE | 2022-04-14 23:12 | NUR ---
I observed Henna TUCKER pass medication and have reviewed her charting Meera Rodriguez RN
[2022-04-15] VITALS (7 sets, daily range): BP systolic 89–123; BP diastolic 40–57
[2022-04-15] MEDS: clindamycin-Cleocin 900mg/D5W 50 ML IV SCH ×2 (00:26→08:18)
[2022-04-15] MEDS ORDERED: vancomycin/NS 1 GM ADD-VANTAGE 250 ML IV ONE (01:30)
[2022-04-15] MEDS: normal saline 1000ml 1,000 ML IV SCH ×2 (01:59→17:58)
[2022-04-15] MEDS: gabapentin 300mg capsule PO SCH ×4 (02:07→19:47)
--- NOTE | 2022-04-15 02:45 | NUR ---
Physical assessment check and I am o.k with.
[2022-04-15] MEDS: HYDROcodone/acetaminophen 10/325mg tab PO PRN ×3 (05:18→16:34)
--- NOTE | 2022-04-15 06:23 | NUR ---
Patient in room ORTHO 4012. I have received report from Viola ZHANG and had the opportunity to ask questions and assume patient care.
[2022-04-15 07:07] LABS: BASOPHILS % (AUTO) 0.5 % (0-1); EOSINOPHILS # (AUTO) 0.3 X10'3 (0-0.9); EOSINOPHILS % (AUTO) 5.4 % (0-6); HEMATOCRIT 25.8 % (35.0-45.0); HEMOGLOBIN 8.7 g/dl (12.0-16.0); LYMPHOCYTES # (AUTO) 0.5 X10'3 (1.1-4.8); LYMPHOCYTES % (AUTO) 9.8 % (21-51); MEAN CORPUSCULAR HEMOGLOBIN 30.3 PG (27.0-31.0); MEAN CORPUSCULAR HGB CONC 33.8 g/dL (33.0-36.5); MEAN CORPUSCULAR VOLUME 89.7 FL (78-98); MEAN PLATELET VOLUME 7.9 FL (7.4-10.4); MONOCYTES # (AUTO) 0.6 X10'3 (0-0.9); MONOCYTES % (AUTO) 11.3 % (2-12); NEUTROPHILS # (AUTO) 3.8 X10'3 (1.8-7.7); PLATELET COUNT 61 X10'3 (140-440); RED BLOOD COUNT 2.88 X10'6 (4.20-5.60); RED CELL DISTRIBUTION WIDTH 15.4 % (11.5-14.5); WHITE BLOOD COUNT 5.2 X10'3 (4.5-11.0)
[2022-04-15] MEDS: K and/or MAG REPLACEMENT MC SCH ×2 (07:10→20:00)
[2022-04-15] MEDS: COLESTIPOL HCL PO SCH ×2 (07:11→20:00)
[2022-04-15 07:15] LABS: ALANINE AMINOTRANSFERASE 25 U/L (12-78); ALKALINE PHOSPHATASE 42 IU/L (46-116); ANION GAP 7 (8-16); ASPARTATE AMINO TRANSFERASE 21 U/L (10-37); BILIRUBIN,TOTAL 1.2 MG/DL (0.1-1.0); BLOOD UREA NITROGEN 23 MG/DL (7-18); BUN/CREATININE RATIO 20.9 (6.6-38.0); CALCIUM 7.9 MG/DL (8.5-10.1); CHLORIDE 101 MMOL/L (99-107); GLUCOSE 151 MG/DL (70-104); MAGNESIUM 1.8 MG/DL (1.5-2.4); POTASSIUM 4.5 MMOL/L (3.5-5.1); SODIUM 136 MMOL/L (135-145); TOTAL CARBON DIOXIDE 28.4 MMOL/L (24-32); eGFR 48 ML/MIN
[2022-04-15] MEDS: docusate sod 100mg capsule PO SCH ×2 (07:28→19:46)
[2022-04-15] MEDS: levoTHYROXINE 100mcg tablet PO SCH (07:28)
[2022-04-15] MEDS: atorvastatin 20mg tablet PO SCH (07:28)
[2022-04-15] MEDS: calcium carbonate 500mg tablet PO SCH ×2 (07:29→19:47)
[2022-04-15] MEDS: multivitamins, therapeutics tablet PO SCH (07:29)
[2022-04-15] MEDS: ferrous gluconate 324mg tablet PO SCH ×2 (07:29→19:47)
[2022-04-15] MEDS: digoxin 125mcg (0.125mg) tablet PO SCH (07:29)
[2022-04-15] MEDS: folic acid 1mg tablet PO SCH (07:29)
[2022-04-15] MEDS: carvedilol 6.25mg tablet PO SCH ×2 (08:00→19:47)
[2022-04-15] MEDS: spironolactone 25 MG tablet PO SCH (08:00)
--- NOTE | 2022-04-15 11:27 | NUR ---
Notified Dr. Lopez of pt's drop in hemaglobin and low blood pressure, as well as pt's blood pressure dropping when PT tried to get pt out of bed. Dr. Lopez instructed me to monitor pt to make sure SBP stays above 90.
--- NOTE | 2022-04-15 11:54 | NUR ---
New order to administer NS at 100ml/hr for 1 liter. Began at 1145.
--- NOTE | 2022-04-15 13:02 | NUR ---
PAGER ID: [phone] MESSAGE: Emilia Hodge in 7852N - platelets are 61. Should I give the heparin or hold it? - Randa [phone]
[2022-04-15] MEDS: heparin, porcine 5000 units/ml vial SQ SCH ×2 (13:09→19:57)
--- NOTE | 2022-04-15 14:24 | NUR ---
PAGER ID: [phone] MESSAGE: Emilia Hodge in - fy, current BP -Randa [phone]
[2022-04-15] MEDS ORDERED: normal saline 500ml IV soln 500 ML IV ONE (14:30)
--- NOTE | 2022-04-15 14:35 | NUR ---
DM Consult: Pt hx DM A1C 5.7% 03/18 not on meds for 4 years per EMR. Unsure if DM hx accurate at this time given A1C though pt not appropriate for DM ed at this time. Addendum: 04/15/22 at [address] Amended: Links added.
--- NOTE | 2022-04-15 17:20 | NUR ---
PAGER ID: [phone] MESSAGE: Emilia Hodge in 2012A - After bolus BP has increased to 109/45, HR 76 -Randa
--- NOTE | 2022-04-15 18:50 | NUR ---
Problems reprioritized. Patient report given, questions answered & plan of care reviewed with Ethel ZHANG.
[2022-04-15] MEDS: insulin glargine (Lantus) pen - multi-dose SQ SCH (21:00)
[2022-04-16] MEDS: HYDROcodone/acetaminophen 5mg/325mg tablet PO PRN ×2 (02:20→14:10)
[2022-04-16] MEDS: gabapentin 300mg capsule PO SCH ×4 (02:20→14:09)
[2022-04-16] MEDS: normal saline 1000ml 1,000 ML IV SCH (02:24)
--- NOTE | 2022-04-16 06:29 | NUR ---
Problems reprioritized. Patient report given, questions answered & plan of care reviewed with TRACEY ZHANG.
--- NOTE | 2022-04-16 06:31 | NUR ---
Patient in room ORTHO 4012. I have received report from dragan ZHANG and had the opportunity to ask questions and assume patient care.
[2022-04-16 06:50] LABS: BASOPHILS % (AUTO) 0.7 % (0-1); EOSINOPHILS # (AUTO) 0.2 X10'3 (0-0.9); EOSINOPHILS % (AUTO) 3.9 % (0-6); HEMATOCRIT 27.5 % (35.0-45.0); HEMOGLOBIN 9.5 g/dl (12.0-16.0); LYMPHOCYTES # (AUTO) 0.4 X10'3 (1.1-4.8); LYMPHOCYTES % (AUTO) 7.6 % (21-51); MEAN CORPUSCULAR HGB CONC 34.7 g/dL (33.0-36.5); MEAN CORPUSCULAR VOLUME 89.5 FL (78-98); MEAN PLATELET VOLUME 7.9 FL (7.4-10.4); MONOCYTES # (AUTO) 0.7 X10'3 (0-0.9); MONOCYTES % (AUTO) 12.3 % (2-12); NEUTROPHILS # (AUTO) 4.2 X10'3 (1.8-7.7); NEUTROPHILS % (AUTO) 75.5 % (42-75); PLATELET COUNT 64 X10'3 (140-440); RED BLOOD COUNT 3.07 X10'6 (4.20-5.60); RED CELL DISTRIBUTION WIDTH 15.3 % (11.5-14.5); WHITE BLOOD COUNT 5.6 X10'3 (4.5-11.0)
[2022-04-16 07:00] VITALS: BP 114/57
[2022-04-16 07:08] LABS: ALANINE AMINOTRANSFERASE 17 U/L (12-78); ALBUMIN/GLOBULIN RATIO 0.9 (1.1-1.5); ALKALINE PHOSPHATASE 45 IU/L (46-116); ANION GAP 11 (8-16); ASPARTATE AMINO TRANSFERASE 18 U/L (10-37); BILIRUBIN,TOTAL 1.4 MG/DL (0.1-1.0); BLOOD UREA NITROGEN 26 MG/DL (7-18); BUN/CREATININE RATIO 26.8 (6.6-38.0); CALCIUM 8.4 MG/DL (8.5-10.1); CHLORIDE 103 MMOL/L (99-107); CREATININE 0.97 MG/DL (0.40-0.90); GLUCOSE 140 MG/DL (70-104); POTASSIUM 5.3 MMOL/L (3.5-5.1); SODIUM 138 MMOL/L (135-145); TOTAL CARBON DIOXIDE 24.1 MMOL/L (24-32); TOTAL PROTEIN 6.3 G/DL (6.4-8.2); eGFR 56 ML/MIN
[2022-04-16] MEDS: K and/or MAG REPLACEMENT MC SCH (08:00)
[2022-04-16] MEDS: folic acid 1mg tablet PO SCH (08:00)
[2022-04-16] MEDS: COLESTIPOL HCL PO SCH (08:00)
[2022-04-16] MEDS: heparin, porcine 5000 units/ml vial SQ SCH (08:00)
[2022-04-16] MEDS: docusate sod 100mg capsule PO SCH (08:01)
[2022-04-16] MEDS: ferrous gluconate 324mg tablet PO SCH (08:01)
[2022-04-16] MEDS: spironolactone 25 MG tablet PO SCH (08:01)
[2022-04-16] MEDS: multivitamins, therapeutics tablet PO SCH (08:01)
[2022-04-16] MEDS: levoTHYROXINE 100mcg tablet PO SCH (08:02)
[2022-04-16] MEDS: digoxin 125mcg (0.125mg) tablet PO SCH (08:02)
[2022-04-16] MEDS: calcium carbonate 500mg tablet PO SCH (08:02)
[2022-04-16] MEDS: atorvastatin 20mg tablet PO SCH (08:02)
[2022-04-16] MEDS: carvedilol 6.25mg tablet PO SCH (08:03)
[2022-04-16 09:33] LABS: ELLIPTOCYTES 1+; PLATELET ESTIMATE DECREASED
[2022-04-16 09:34] LABS: POLYCHROMASIA FEW; SCHISTOCYTES FEW
[2022-04-16 10:00] VITALS: BP 128/54
--- NOTE | 2022-04-16 14:05 | NUR ---
report called to bandar with regards transfer to [facility]. Bonneau given for pain Addendum: 04/16/22 at 1552 by Emmanuelle Mays RN patient was taken norco but refused it when at bedside. worked with PT. Confused at times. patient DC to [facility] 1500hrs in stable condition with [facility] staff to [facility]
[2022-04-20] MEDS ORDERED: OSC500T PO (10:52)
[2022-04-20] MEDS ORDERED: gabapentin capsule PO (10:52)
[2022-04-20] MEDS ORDERED: COLE1TAB4 PO (10:52)
[2022-04-20] MEDS ORDERED: SACU1TAB PO (10:52)
== END 2022-04-16 14:55 | DRG 481 ==
LOC: ER 12:55 → ED HOLD 18:17 → ORTHO 4S 04-14 09:55
PROVIDERS: ADMIT Family Medicine; ATTEND Family Medicine
PROC: 0QS736Z Reposition Left Upper Femur with Intramedullary Internal Fixation Device, Percutaneous Approach (ICD-10-PCS; principal; 2022-04-14 16:28)
DX: S72.002A Fracture of unspecified part of neck of left femur, initial encounter for closed fracture (principal); D62 Acute posthemorrhagic anemia; I50.22 Chronic systolic (congestive) heart failure; Z20.822 Contact with and (suspected) exposure to COVID-19; E11.9 Type 2 diabetes mellitus without complications; E78.00 Pure hypercholesterolemia, unspecified; E86.0 Dehydration; E87.5 Hyperkalemia; G47.33 Obstructive sleep apnea (adult) (pediatric); I11.0 Hypertensive heart disease with heart failure; I25.10 Atherosclerotic heart disease of native coronary artery without angina pectoris; I35.0 Nonrheumatic aortic (valve) stenosis; I95.2 Hypotension due to drugs; J44.9 Chronic obstructive pulmonary disease, unspecified; T50.2X5A Adverse effect of carbonic-anhydrase inhibitors, benzothiadiazides and other diuretics, initial encounter; W01.0XXA Fall on same level from slipping, tripping and stumbling without subsequent striking against object, initial encounter; I25.2 Old myocardial infarction; Y92.89 Other specified places as the place of occurrence of the external cause; Z79.02 Long term (current) use of antithrombotics/antiplatelets; Z82.49 Family history of ischemic heart disease and other diseases of the circulatory system; Z79.84 Long term (current) use of oral hypoglycemic drugs; Z90.710 Acquired absence of both cervix and uterus; Z95.1 Presence of aortocoronary bypass graft; Z95.5 Presence of coronary angioplasty implant and graft; Y93.89 Activity, other specified; Y99.8 Other external cause status; Z88.8 Allergy status to other drugs, medicaments and biological substances; Z88.0 Allergy status to penicillin
CPT/HCPCS: 36415; 71045; 73502; 76000; 80053; 81003; 82948; 83735; 84484; 85008; 85025; 85610; 85730; 87081; 87635; 87811; 93306; 94760; 97116; 97161; 97530; 99285; A4353; A5200; G0378; J1644; J1815; J2250; J2270; J2405; J2704; J3010; J3370; J3490; J7030; J7040

== ENCOUNTER 2023-07-17 13:02 | Inpatient (IN) | payer MEDICARE, OTHER ==
[~2023-07-17] VITALS: Ht 157.5 cm; Wt 78.0 kg
[~2023-07-17 13:02] MED LIST changes: -ATOR40TA72 PO; +CALC1CAP21 PO; -CARV-50 PO; +CARV6.253 PO; -GABA-532 PO; +GABA600T13 PO; -OSC500T PO
[2023-07-17 13:42] LABS: ALANINE AMINOTRANSFERASE 16 U/L (12-78); ALBUMIN 3.8 G/DL (3.4-5.0); ALBUMIN/GLOBULIN RATIO 1.1 (1.1-1.5); ALKALINE PHOSPHATASE 67 IU/L (46-116); ANION GAP 8 (8-16); ASPARTATE AMINO TRANSFERASE 17 U/L (10-37); BILIRUBIN,TOTAL 0.6 MG/DL (0.1-1.0); BLOOD UREA NITROGEN 20 MG/DL (7-18); BUN/CREATININE RATIO 19.6 (10.0-20.0); CALCIUM 9.1 MG/DL (8.5-10.1); CHLORIDE 101 MMOL/L (99-107); CREATININE 1.02 MG/DL (0.40-0.90); GLUCOSE 119 MG/DL (70-104); POTASSIUM 4.5 MMOL/L (3.5-5.1); SODIUM 136 MMOL/L (135-145); TOTAL CARBON DIOXIDE 26.7 MMOL/L (24-32); TOTAL PROTEIN 7.2 G/DL (6.4-8.2); eCRCL 35 ML/MIN; eGFR 52 ML/MIN
[2023-07-17 13:49] LABS: PRO BRAIN NATRIURETIC PEPTIDE 3228 PG/ML (0-450)
[2023-07-17 14:05] LABS: BASOPHILS % (AUTO) 0.5 % (0-1); EOSINOPHILS # (AUTO) 0.1 X10'3 (0-0.9); EOSINOPHILS % (AUTO) 2.3 % (0-6); HEMATOCRIT 38.3 % (35.0-45.0); HEMOGLOBIN 12.7 g/dl (12.0-16.0); LYMPHOCYTES # (AUTO) 0.6 X10'3 (1.1-4.8); LYMPHOCYTES % (AUTO) 9.2 % (21-51); MEAN CORPUSCULAR HGB CONC 33.3 g/dL (33.0-36.5); MEAN CORPUSCULAR VOLUME 93.1 FL (78-98); MEAN PLATELET VOLUME 8.2 FL (7.4-10.4); MONOCYTES # (AUTO) 0.5 X10'3 (0-0.9); MONOCYTES % (AUTO) 7.8 % (2-12); NEUTROPHILS % (AUTO) 80.2 % (42-75); PLATELET COUNT 114 X10'3 (140-440); RED BLOOD COUNT 4.11 X10'6 (4.20-5.60); WHITE BLOOD COUNT 6.2 X10'3 (4.5-11.0)
--- NOTE | 2023-07-17 19:10 | NUR ---
FOOD TRAY PROVIDED BY TECH
[2023-07-17] MEDS ORDERED: heparin 10,000 units/1 ML INJ IV PRN ×2 (19:20→20:40)
[2023-07-17] MEDS ORDERED: heparin 25,000 UNIT/250ml bag 250 ML IV PRN ×2 (19:20→20:40)
[2023-07-17] MEDS ORDERED: heparin 10,000 units/1 ML INJ IV ONE ×2 (19:20→20:40)
[2023-07-17] MEDS ORDERED: iohexol 350MG/ML 100ml bottle IV ONE (19:28)
[2023-07-17 19:39] LABS: APTT 29 SECONDS (22-32); INR 1.1 INR; PROTHROMBIN TIME 11.4 SECONDS (9.0-12.0)
[2023-07-17] MEDS ORDERED: ondansetron/PF 4mg/2ml inj IV PRN (20:40)
[2023-07-17] MEDS ORDERED: dextrose 50%-water 50ml dispensing syringe IV PRN ×2 (20:40)
[2023-07-17] MEDS ORDERED: albuterol 2.5 MG/3 ML nebule NEB PRN (20:40)
[2023-07-17] MEDS ORDERED: insulin Lispro (HumaLOG) vial - multi-dose SQ SCH (20:40)
[2023-07-17] MEDS ORDERED: HYDROcodone/acetaminophen 10/325mg tab PO PRN (20:40)
[2023-07-17] MEDS ORDERED: DEXTROSE 15 GM of carb/4 tabs (each vial/BOTTLE has 4 tablets) PO PRN ×2 (20:40)
[2023-07-17] MEDS ORDERED: mag hydrox/Alum hydrox/simeth 30ml oral suspension PO PRN (20:40)
[2023-07-17] MEDS ORDERED: potassium Cl 40MEQ/1/2NS 520ml 520 ML IV PRN (20:40)
[2023-07-17] MEDS ORDERED: glucagon, human recombinant 1mg kit SUBCUT PRN (20:40)
[2023-07-17] MEDS ORDERED: MESSAGE TO PHARMACY PO ONE (20:40)
[2023-07-17] MEDS ORDERED: PERFLUTREN PROTEIN-A MICROSPHR (Optison) 0.22 MG/ML 3ML VIAL IV ONE (20:40)
[2023-07-17] MEDS ORDERED: potassium Cl 20 mEq SR tablet PO PRN ×2 (20:40)
[2023-07-17] MEDS ORDERED: magnesium 4gm in 100ml NS 100 ML IV PRN (20:40)
[2023-07-17] MEDS ORDERED: acetaminophen 325mg tablet PO PRN ×2 (20:40)
[2023-07-17] MEDS ORDERED: magnesium 2GM in 50ml NS 50 ML IV PRN (20:40)
[2023-07-17] MEDS ORDERED: bisacodyl 10mg suppository rectal RC PRN (20:40)
[2023-07-17] MEDS: insulin glargine (Lantus) pen - multi-dose SQ SCH (20:56)
[2023-07-17 21:38] VITALS: PULSE 78; RESP 16; O2SAT 96
--- NOTE | 2023-07-17 22:00 | NUR ---
I agree with the general assessment performed by Avni Diaz LVN
[2023-07-18] VITALS (21 sets, daily range): BP systolic 119–161; BP diastolic 42–84; PULSE 48–87; RESP 12–20; TEMP 97.2–98.3; O2SAT 91–100
--- NOTE | 2023-07-18 00:04 | NUR ---
REPORT CALLED TO FLOOR NURSE HEPRIN DRIP REPORT GIVEN BY RN PT TX TO ROOM 3016A BY TECH
[2023-07-18 03:14] LABS: EOSINOPHILS # (AUTO) 0.2 X10'3 (0-0.9); HEMOGLOBIN 10.9 g/dl (12.0-16.0); MEAN CORPUSCULAR HEMOGLOBIN 30.7 PG (27.0-31.0)
[2023-07-18 03:15] LABS: EOSINOPHILS % (AUTO) 4.1 % (0-6); HEMATOCRIT 33.2 % (35.0-45.0); LYMPHOCYTES % (AUTO) 24.9 % (21-51); MEAN CORPUSCULAR VOLUME 93.1 FL (78-98); MEAN PLATELET VOLUME 8.2 FL (7.4-10.4); MONOCYTES # (AUTO) 0.4 X10'3 (0-0.9); MONOCYTES % (AUTO) 10.9 % (2-12); NEUTROPHILS # (AUTO) 2.4 X10'3 (1.8-7.7); NEUTROPHILS % (AUTO) 59.1 % (42-75); PLATELET COUNT 94 X10'3 (140-440); RED BLOOD COUNT 3.56 X10'6 (4.20-5.60); WHITE BLOOD COUNT 4.1 X10'3 (4.5-11.0)
[2023-07-18 03:25] LABS: ALANINE AMINOTRANSFERASE 13 U/L (12-78); ALBUMIN 3.3 G/DL (3.4-5.0); ALBUMIN/GLOBULIN RATIO 1.1 (1.1-1.5); ALKALINE PHOSPHATASE 61 IU/L (46-116); ANION GAP 4 (8-16); ASPARTATE AMINO TRANSFERASE 24 U/L (10-37); BILIRUBIN,TOTAL 0.5 MG/DL (0.1-1.0); BLOOD UREA NITROGEN 24 MG/DL (7-18); BUN/CREATININE RATIO 18.3 (10.0-20.0); CALCIUM 9.1 MG/DL (8.5-10.1); CHLORIDE 104 MMOL/L (99-107); CREATININE 1.31 MG/DL (0.40-0.90); GLUCOSE 100 MG/DL (70-104); MAGNESIUM 2.2 MG/DL (1.5-2.4); POTASSIUM 4.6 MMOL/L (3.5-5.1); SODIUM 138 MMOL/L (135-145); TOTAL PROTEIN 6.2 G/DL (6.4-8.2); eCRCL 28 ML/MIN; eGFR 39 ML/MIN
--- NOTE | 2023-07-18 04:44 | NUR ---
Message: PT 3016A ILEANA HANNA PT HAS CRITICAL TROP OF [facility] LISANDRA SPAIN 41 Addendum: 07/18/23 at 0456 by Lisandra Mariee RN PAGER ID: [phone] MESSAGE: SARAH 3016A ILEANA HANNA CRITICAL TROP [address] [place] [id number]
--- NOTE | 2023-07-18 04:57 | NUR ---
SPOKE WITH DR GALLARDO HE SAID THAT THE TROP OF 118 HAD GONE DOWN FROM LAST TROP AND HE DID NOT WANT THE HEPARIN DRIP RESTARTED.
[2023-07-18] MEDS ORDERED: metoprolol tartrate 1mg/ml inj IV PRN (05:35)
[2023-07-18] MEDS ORDERED: nitroGLYCERIN 0.4mg SUBLingual tab SL PRN (05:35)
[2023-07-18] MEDS ORDERED: regadenoson 0.4mg/5ml syringe IV PRN (05:35)
[2023-07-18] MEDS ORDERED: aminophylline 250mg/10ml inj. IV PRN (05:35)
--- NOTE | 2023-07-18 06:41 | NUR ---
Problems reprioritized. Patient report given, questions answered & plan of care reviewed with LEATHA Chambers.
--- NOTE | 2023-07-18 06:42 | NUR ---
Patient in room PCU 3016. I have received report from Zuleyka and had the opportunity to ask questions and assume patient care. Addendum: 07/18/23 at 0642 by Reyes Jin RN Amended: Links added.
[2023-07-18] MEDS: ipratropium/albuterol 3ml nebule NEB PRN ×2 (07:46→19:14)
[2023-07-18] MEDS: budesonide 0.5mg/2ml UD nebule IH SCH ×2 (07:46→19:14)
[2023-07-18] MEDS: docusate sod 100mg capsule PO SCH ×2 (07:54→20:00)
[2023-07-18] MEDS: HYDROcodone/acetaminophen 5mg/325mg tablet PO PRN (07:55)
[2023-07-18] MEDS: K and/or MAG REPLACEMENT MC SCH ×2 (08:00→20:00)
[2023-07-18] MEDS: clindamycin 600mg/D5W 50ml 50 ML IV SCH ×2 (08:00→14:00)
[2023-07-18] MEDS: furosemide 10 MG/1 ML 10ml inj IV SCH ×2 (08:00→22:08)
--- NOTE | 2023-07-18 11:15 | NUR ---
016A, Ayesha-Stress results in, requesting to eat, thanks
--- NOTE | 2023-07-18 17:25 | NUR ---
Pt refused blood suger at this time
--- NOTE | 2023-07-18 18:18 | NUR ---
Problems reprioritized. Patient report given, questions answered & plan of care reviewed with Addendum: 07/18/23 at 1825 by Reyes Jin RN Amended: Links added.
[2023-07-18 19:44] LABS: HEMOGLOBIN A1C 5.1 % (4.5-6.2)
[2023-07-18] MEDS: heparin, porcine 5000 units/ml vial SQ SCH (20:00)
[2023-07-18] MEDS: insulin glargine (Lantus) pen - multi-dose SQ SCH (21:00)
[2023-07-18] MEDS: calcium carbonate/vitamin D3 tablet PO SCH (22:06)
[2023-07-18] MEDS: gabapentin 300mg capsule PO SCH (22:06)
[2023-07-18] MEDS: carvedilol 6.25mg tablet PO SCH (22:06)
--- NOTE | 2023-07-19 01:21 | NUR ---
Pt refused 2100 BG check and Lantus. Nurse educated pt on risks, pt still refuses
[2023-07-19 02:00] VITALS: BP 144/57; PULSE 69; RESP 16; TEMP 98.9; O2SAT 93
[2023-07-19] MEDS: HYDROcodone/acetaminophen 5mg/325mg tablet PO PRN (03:04)
--- NOTE | 2023-07-19 06:11 | NUR ---
Problems reprioritized. Patient report given, questions answered & plan of care reviewed with Reyes RN. Pt stable at transfer of care
--- NOTE | 2023-07-19 06:23 | NUR ---
Patient in room U 3016. I have received report from Paola and had the opportunity to ask questions and assume patient care. Addendum: 07/19/23 at 0623 by Reyes Jin RN Amended: Links added.
[2023-07-19] MEDS ORDERED: levoTHYROXINE 100mcg tablet PO SCH (07:00)
[2023-07-19 07:29] VITALS: BP 120/53; PULSE 60; RESP 18; TEMP 97.4; O2SAT 99
[2023-07-19 07:58] VITALS: PULSE 54; RESP 18; O2SAT 96
[2023-07-19] MEDS: ipratropium/albuterol 3ml nebule NEB PRN (07:58)
[2023-07-19] MEDS: budesonide 0.5mg/2ml UD nebule IH SCH (07:58)
[2023-07-19] MEDS: K and/or MAG REPLACEMENT MC SCH (08:00)
[2023-07-19] MEDS ORDERED: digoxin 125mcg (0.125mg) tablet PO SCH (08:00)
[2023-07-19] MEDS ORDERED: multivitamins, therapeutics tablet PO SCH (08:00)
[2023-07-19] MEDS ORDERED: folic acid 1mg tablet PO SCH (08:00)
[2023-07-19] MEDS ORDERED: spironolactone 25 MG tablet PO SCH (08:00)
[2023-07-19 08:02] LABS: EOSINOPHILS # (AUTO) 0.2 X10'3 (0-0.9); EOSINOPHILS % (AUTO) 4.8 % (0-6); HEMATOCRIT 33.5 % (35.0-45.0); HEMOGLOBIN 11.1 g/dl (12.0-16.0); LYMPHOCYTES % (AUTO) 20.6 % (21-51); MEAN CORPUSCULAR HEMOGLOBIN 30.6 PG (27.0-31.0); MEAN CORPUSCULAR HGB CONC 33.1 g/dL (33.0-36.5); MEAN CORPUSCULAR VOLUME 92.7 FL (78-98); MEAN PLATELET VOLUME 8.4 FL (7.4-10.4); MONOCYTES # (AUTO) 0.6 X10'3 (0-0.9); MONOCYTES % (AUTO) 12.7 % (2-12); NEUTROPHILS # (AUTO) 2.8 X10'3 (1.8-7.7); NEUTROPHILS % (AUTO) 60.9 % (42-75); PLATELET COUNT 98 X10'3 (140-440); RED BLOOD COUNT 3.62 X10'6 (4.20-5.60); RED CELL DISTRIBUTION WIDTH 14.7 % (11.5-14.5); WHITE BLOOD COUNT 4.6 X10'3 (4.5-11.0)
[2023-07-19 08:08] VITALS: PULSE 53; RESP 16
[2023-07-19] MEDS: calcium carbonate/vitamin D3 tablet PO SCH (08:19)
[2023-07-19] MEDS: docusate sod 100mg capsule PO SCH (08:20)
[2023-07-19] MEDS: gabapentin 300mg capsule PO SCH (08:22)
[2023-07-19] MEDS: furosemide 10 MG/1 ML 10ml inj IV SCH (08:30)
[2023-07-19 08:31] LABS: ALANINE AMINOTRANSFERASE 15 U/L (12-78); ALBUMIN 3.4 G/DL (3.4-5.0); ALBUMIN/GLOBULIN RATIO 1.1 (1.1-1.5); ALKALINE PHOSPHATASE 53 IU/L (46-116); ANION GAP 6 (8-16); ASPARTATE AMINO TRANSFERASE 15 U/L (10-37); BILIRUBIN,TOTAL 0.5 MG/DL (0.1-1.0); BLOOD UREA NITROGEN 29 MG/DL (7-18); BUN/CREATININE RATIO 26.6 (10.0-20.0); CALCIUM 9.2 MG/DL (8.5-10.1); CHLORIDE 101 MMOL/L (99-107); CREATININE 1.09 MG/DL (0.40-0.90); GLUCOSE 107 MG/DL (70-104); POTASSIUM 4.3 MMOL/L (3.5-5.1); SODIUM 135 MMOL/L (135-145); TOTAL CARBON DIOXIDE 28.3 MMOL/L (24-32); TOTAL PROTEIN 6.5 G/DL (6.4-8.2); eCRCL 33 ML/MIN; eGFR 48 ML/MIN
[2023-07-19 08:39] VITALS: BP_SYST 120; PULSE 58
[2023-07-19] MEDS: carvedilol 6.25mg tablet PO SCH (08:39)
[2023-07-19] MEDS: heparin, porcine 5000 units/ml vial SQ SCH (08:41)
[2023-07-19] MEDS ORDERED: FURO20TA4 PO (10:37)
[2023-07-20] MEDS ORDERED: clopidogrel 75mg tablet PO SCH (08:00)
== END 2023-07-19 12:40 | disposition home or self-care (01) | DRG 280 ==
LOC: ER 13:02 → ED HOLD 20:50 → PCU 3S 07-18 00:17
PROVIDERS: ADMIT Family Medicine; ATTEND Internal Medicine
PROC: B32T1ZZ Computerized Tomography (CT Scan) of Left Pulmonary Artery using Low Osmolar Contrast (ICD-10-PCS; principal; 2023-07-17)
PROC: B3201ZZ Computerized Tomography (CT Scan) of Thoracic Aorta using Low Osmolar Contrast (ICD-10-PCS; 2023-07-17)
PROC: B32S1ZZ Computerized Tomography (CT Scan) of Right Pulmonary Artery using Low Osmolar Contrast (ICD-10-PCS; 2023-07-17)
PROC: 4A02XM4 Measurement of Cardiac Total Activity, External Approach (ICD-10-PCS; 2023-07-18)
PROC: 3E073KZ Introduction of Other Diagnostic Substance into Coronary Artery, Percutaneous Approach (ICD-10-PCS; 2023-07-18)
DX: I11.0 Hypertensive heart disease with heart failure (principal); I21.A1 Myocardial infarction type 2; I50.23 Acute on chronic systolic (congestive) heart failure; N17.0 Acute kidney failure with tubular necrosis; J44.0 Chronic obstructive pulmonary disease with (acute) lower respiratory infection; J96.11 Chronic respiratory failure with hypoxia; J44.1 Chronic obstructive pulmonary disease with (acute) exacerbation; G47.33 Obstructive sleep apnea (adult) (pediatric); G89.29 Other chronic pain; K21.9 Gastro-esophageal reflux disease without esophagitis; I25.10 Atherosclerotic heart disease of native coronary artery without angina pectoris; M54.9 Dorsalgia, unspecified; E78.00 Pure hypercholesterolemia, unspecified; E11.42 Type 2 diabetes mellitus with diabetic polyneuropathy; Z95.1 Presence of aortocoronary bypass graft; Z95.5 Presence of coronary angioplasty implant and graft; Z88.1 Allergy status to other antibiotic agents; Z88.0 Allergy status to penicillin; Z88.7 Allergy status to serum and vaccine; Z88.5 Allergy status to narcotic agent; Z88.8 Allergy status to other drugs, medicaments and biological substances; Z91.041 Radiographic dye allergy status; I25.2 Old myocardial infarction; Z90.710 Acquired absence of both cervix and uterus; Z79.01 Long term (current) use of anticoagulants; Z79.899 Other long term (current) drug therapy; Z87.891 Personal history of nicotine dependence; Z98.42 Cataract extraction status, left eye; Z98.41 Cataract extraction status, right eye
CPT/HCPCS: 36415; 71045; 71275; 78452; 80053; 80162; 82948; 83036; 83735; 83880; 84484; 85025; 85379; 85610; 85730; 87081; 93017; 93306; 94640; 94760; 99285; A9500; G0378; J1644; J1815; J1940; J2785; J3490; J7040; Q9967

== ENCOUNTER 2025-04-29 09:55 | Outpatient (CLI) | payer OTHER, MEDICARE ==
[~2025-04-29 09:55] MED LIST changes: +ASPI81TA53 PO; +CARV3.12 PO; -CARV6.253 PO; +COLE1TAB2 PO; -DIGO125T PO; +DOCU100C38 PO; +EMPA10TA PO; +FERR324T23 PO; +FURO-150 PO; -FURO20TA4 PO; +FURO40TA4 PO; +GABA-1405 PO; -GABA600T13 PO; +IODIXANOL 320 MG/ML INFUS..BTL 100ML IV ONE; +LEVO200T8 PO; +LOSA50TA64 PO; +PANT40TA54 PO; +PER5325T PO; +PRED20TA PO; +SACU1TAB PO; +SPIR25TA PO; -SPIR25TA5 PO
[2025-04-29 10:24] LABS: MEAN PLATELET VOLUME 7.2 FL (7.4-10.4); RED CELL DISTRIBUTION WIDTH 15.8 % (11.5-14.5)
[2025-04-29 10:37] LABS: APTT 31 SECONDS (22-32); INR 1.1 INR
[2025-04-29 10:47] LABS: CREATININE 1.09 MG/DL (0.40-0.90); PRO BRAIN NATRIURETIC PEPTIDE 3299 PG/ML (0-450); TOTAL CARBON DIOXIDE 31.2 MMOL/L (24-32); eGFR 48 ML/MIN
--- NOTE | 2025-04-29 12:39 | RADIOLOGY REPORT ---
EXAM: DI CHEST,TWO VIEWS CLINICAL HISTORY: TAVR SOB COMPARISON: CT CTA CHEST PE W/ IV CONTRAST on DOS: 04/10/25, DI CHEST,SINGLE VIEW on DOS: 11/14/24, CT CTA CHEST PE on DOS: 07/17/23, DI CHEST,SINGLE VIEW on DOS: 07/17/23, CHEST,SINGLE VIEW on DOS: TECHNIQUE: Frontal and lateral view of the chest was obtained FINDINGS: Lines and Tubes: None Lungs: Calcified nodule in the right upper lung. Pleura: Possible small left pleural effusion. Left basilar opacity. Cardiomediastinal contours: Unremarkable. Atherosclerotic vascular calcifications of the thoracic ao rta are noted. Bones: No acute osseous abnormality. IMPRESSION: Possible small left pleural effusion. Left basilar opacity.
--- NOTE | 2025-04-29 15:17 | VASCULAR REPORT ---
CLINICAL HISTORY: Tavr TECHNIQUE: Lowery-scale, color and duplex doppler imaging of the bilateral carotid systems was performe d. COMPARISON: None Findings: Right carotid system: There is no plaque present in the right carotid system. Left carotid system: There is no plaque present in the left carotid system. The following flow velocities were obtained (Cm/sec). Right carotid System: ICA PSV: 93 Cm/sec ICA PDV: 23 Cm/sec ICA/CCA Ratio: 1.2 Left carotid System: ICA PSV: 112 Cm/sec ICA PDV: 32 Cm/sec ICA/CCA Ratio: 1.1 The right and left common carotid and external carotid arteries are patent. There is antegrade flow i n both vertebral arteries and external carotid arteries. IMPRESSION: LESS THAN 50% RIGHT ICA NARROWING. LESS THAN 50% LEFT ICA NARROWING. Estimation of carotid stenosis is based on velocity parameters that correlate the residual internal c arotid Diameter with that of the more distal vessel in accordance with the [place] symptomatic Carotid Endarterectomy trial (NASCET).
== END 2025-04-29 23:59 | disposition home or self-care (01) ==
LOC: RAD 09:55
PROVIDERS: ATTEND Internal Medicine Cardiovascular Disease
DX: R91.1 Solitary pulmonary nodule (principal); I35.0 Nonrheumatic aortic (valve) stenosis; R06.02 Shortness of breath; I65.29 Occlusion and stenosis of unspecified carotid artery; I70.0 Atherosclerosis of aorta
CPT/HCPCS: 36415; 71046; 71275; 74174; 75572; 80053; 83880; 85025; 85610; 85730; 93880; Q9967

== ENCOUNTER 2025-08-15 09:57 | Day surgery (SDC) | payer MEDICARE, OTHER ==
[2025-08-13 13:10] LABS: MEAN PLATELET VOLUME 7.6 FL (7.4-10.4); RED CELL DISTRIBUTION WIDTH 15.5 % (11.5-14.5)
[2025-08-13 13:28] LABS: APTT 31 SECONDS (22-32); INR 1.1 INR
[2025-08-13 13:30] LABS: CHOL/HDL RATIO 3.5 (0.00-4.99); CREATININE 1.31 MG/DL (0.40-0.90); LDL CHOLESTEROL 65 MG/DL (50-100); TOTAL CARBON DIOXIDE 29.3 MMOL/L (24-32); eGFR 39 ML/MIN
[2025-08-15] VITALS (8 sets, daily range): BP systolic 101–143; BP diastolic 41–69; PULSE 64–81; RESP 16–20; TEMP 97.9; O2SAT 95–98
[~2025-08-15] VITALS: Ht 157.5 cm; Wt 67.0 kg
[~2025-08-15 09:57] MED LIST changes: -ASPI81TA53 PO; -CALC1CAP21 PO; -CARV3.12 PO; +CARV6.253 PO; -COLE1TAB4 PO; -FERR236T3 PO; -FURO40TA4 PO; -GABA-1405 PO; +GABA300C PO; -IODIXANOL 320 MG/ML INFUS..BTL 100ML IV ONE; -LEVO200T8 PO; -LOSA50TA64 PO; -MULT-1085 PO; -PER5325T PO; -PRED20TA PO; -SPIR25TA PO
[2025-08-15] MEDS ORDERED: PANT-47 PO (10:37)
[2025-08-15] MEDS ORDERED: FURO20TA4 PO (10:38)
[2025-08-15] MEDS ORDERED: OSC500T PO (10:39)
[2025-08-15] MEDS ORDERED: PER5325T (10:40)
[2025-08-15] MEDS ORDERED: ASPI-1265 PO (10:51)
[2025-08-15] MEDS ORDERED: LOSA50TA64 PO (10:51)
--- NOTE | 2025-08-15 11:22 | ELECTROCARDIOGRAPH REPORT ---
[facility] Test Date: 2025-08-15 Test Time: 11:21:05 Pat Name: ILEANA HANNA Department: [facility]-SSTAY O Patient ID: [facility]-[id number] Room: Gender: F Dowel Pointer: DANNA : 1945 Requested By: PATTIE CHOI Order Number: [id number] Reading MD: Dr. HILARIO Goss Measurements Intervals Opal Rate: 89 P: 247 MA: 144 QRS: -3 QRSD: 119 T: 163 QT: 402 QTc: 490 Interpretive Statements Sinus or ectopic atrial rhythm LVH with secondary repolarization abnormality Borderline prolonged QT interval Electronically Signed On 08-15-2025 20:54:[address] HILARIO Goss Please click the below link to view image of tracing.
[2025-08-15] MEDS ORDERED: heparin 1,000unit/ml 10ml vial 10 ML ONE (13:26)
[2025-08-15] MEDS ORDERED: LIDOcaine 1% (10mg/ml) 2ml vial ONE (13:26)
[2025-08-15] MEDS ORDERED: verapamil 2.5 mg/ml inj IV ONE (13:26)
[2025-08-15] MEDS ORDERED: midazolam 1 mg/ML 2ml injection ONE (13:26)
[2025-08-15] MEDS ORDERED: fentaNYL/PF 50MCG/1 ML 2ML syringe ONE (13:26)
[2025-08-15] MEDS ORDERED: nitroGLYCERIN 500mcg/5mL D5W 5 ML IV ONE (13:27)
[2025-08-15] MEDS ORDERED: LIDOcaine 1% 30ml preserv. free vial ONE (14:03)
[2025-08-15] MEDS ORDERED: clopidogrel 300mg tablet ONE (14:39)
--- NOTE | 2025-09-01 12:50 | CARDIAC CATH REPORT ---
Cardiac Cath Report Providers to CC CC: CATHLEEN CHOI MD Procedure Comments: 1. Selective Coronary Angiography 2. Shockwave Lithotripsy of the proximal-mid RCA 3. Percutaneous Coronary Intervention of the Right Coronary Artery x 1 4. Right Radial Artery Access 5. Left Femoral Artery Access 6. Left Femoral Artery Angiography Brief History/Indications: 80yo woman with HTN, HLD, CAD(s/P CABG), Subclavian stenosis(s/p stent), Severe referred for PCI of the RCA Prior to TAVR. Techniques: After informed consent was obtained, the patient was brought to the cardiac catheterization laboratory and prepped and draped in usual sterile fashion for left heart catheterization and other procedures mentioned above. The right wrist was anesthetized with 1% Lidocaine and the right radial artery accessed via the Seldinger technique after which a 6Fr sheath was placed. Through this a JR4 was used to engage the Right coronary artery. Given significant tortuosity, unable to engage the RCA, so transitioned to femoral access. The left groin was anesthetized with 1% Lidocaine after which access was obtained using Seldinger technique. Through this, a 6Fr sheath was placed (45cm). See below for interventional procedure details. At the conclusion of the case the sheath was removed and hemostasis obtained with a VascBand for the radial artery and Perclose for the femoral artery. Findings Findings: HEMODYNAMICS: See Procedure log CORONARY ARTERIES: Rt Dominant RCA: Mod ISR of the ostial-prox RCA, 70-80% stenosis of mid-RCA. PERCUTANEOUS CORONARY INTERVENTION of the RCA: A JR 4 guide was used to engage the right coronary artery. The RCA lesion was crossed with a BMW wire. Pre-dilatation was performed with a 3.0x12mm balloon. Repeat angiography revealed inadequate pre-treatment of the lesion without evidence of dissection. Attempted to advanced a 4.0x12mm stent, however, unable to do so. IVL was then used to pre-dilate the lesion with a 3.5mm balloon. After serial inflations, multiple rounds of therapy were delivered. Subsequently, the 4.0x12mm [place] SRAVANI was deployed across the mid RCA lesion. The proximal/ostial RCA lesion improved with shockwave lithoplasty, so another layer of stents was not deployed. Repeat angiography revealed adequate stent expansion without evidence of dissection. Results Results: 1. Moderate ISR of the prox RCA. 70-80% mid RCA stenosis 2. Shockwave IVL of the prox-mid RCA with 3.5mm balloon 3. PCI of mid RCA with 4.0x12mm [place] SRAVANI 4. RRA Access, closed with VascBand 5. LFA Access, closed with Perclose x 1 RECOMMENDATIONS: 1. Cont ASA 81mg QD indefinitely 2. Cont Plavix 75mg QD x 6mo 3. Recommend uptitration of other max-tolerated GDMT PATTIE CHOI MD Sep 01, 2025 12:50
== END 2025-08-15 18:29 | disposition home or self-care (01) ==
LOC: SSTAY O 09:57
PROVIDERS: ATTEND Student in an Organized Health Care Education/Training Program
DX: I25.10 Atherosclerotic heart disease of native coronary artery without angina pectoris (principal); E78.5 Hyperlipidemia, unspecified; E03.9 Hypothyroidism, unspecified; I11.0 Hypertensive heart disease with heart failure; I50.9 Heart failure, unspecified; I25.2 Old myocardial infarction; J44.9 Chronic obstructive pulmonary disease, unspecified; K21.9 Gastro-esophageal reflux disease without esophagitis; Z95.1 Presence of aortocoronary bypass graft; Z86.74 Personal history of sudden cardiac arrest; Z90.710 Acquired absence of both cervix and uterus; Z87.891 Personal history of nicotine dependence; Z98.890 Other specified postprocedural states; Z79.01 Long term (current) use of anticoagulants; Z82.3 Family history of stroke; Z82.49 Family history of ischemic heart disease and other diseases of the circulatory system; Z80.1 Family history of malignant neoplasm of trachea, bronchus and lung
CPT/HCPCS: 36140; 36415; 80048; 80061; 85025; 85610; 85730; 92972; 93005; 93454; 99152; 99153; A6258; C1725; C1751; C1760; C1769; C1874; C1887; C1894; C9602; J1644; J2003; J2250; J3010; J3490; J7030; Q0163; Q9967; Z7610; C9600